=== PATIENT | male | born 1990 | race Caucasian/White ===

== ENCOUNTER → 2016-06-12 | Outpatient (CLI) | payer OTHER ==
[2016-06-12 11:28] LABS: CHCM 33.1; HCT 49.1 % (39.0-53.0); HDW 2.59; HGB 16.3 gm/dL (13.0-17.5); MCH 30.2 pg (25.0-35.0); MCHC 33.2 g/dL (31.0-37.0); Mean Platelet Volume 6.5; RDW 12.7 % (11.5-15.5); WBC 4.3 k/uL (3.8-10.6)
[2016-06-12 11:34] LABS: Anion Gap 12 mmol/L; Blood Urea Nitrogen 22 mg/dL (9-20); Calcium 9.3 mg/dL (8.4-10.2); Carbon Dioxide 22 mmol/L (22-30); Chloride 111 mmol/L (98-107); Glucose 85 mg/dL (74-99); Iron 73 ug/dL (49-181); Magnesium 1.9 mg/dL (1.6-2.3); Non-African American GFR(MDRD) >60 (>60 ml/min/1.73 sqM); Phosphorous 4.1 mg/dL (2.5-4.5); Potassium 4.5 mmol/L (3.5-5.1); Sodium 145 mmol/L (137-145); Uric Acid 5.1 mg/dL (3.5-8.5)
[2016-06-12 11:38] LABS: Cholesterol 130 mg/dL (<200); HDL Cholesterol 48 mg/dL (40-60); Triglycerides 69 mg/dL (<150)
[2016-06-12 11:43] LABS: Amorphous Sediment,Urine Rare /hpf; Appearance,Urine Cloudy (Clear); Bilirubin,Urine Negative (Negative); Glucose,Urine (UA) Negative (Negative); Ketones,Urine Negative (Negative); Leukocyte Esterase,Urine Small (Negative); Mucus,Urine Rare /hpf; Nitrite,Urine Negative (Negative); Particle Count 3761; Protein,Urine Negative (Negative); Specific Gravity,Urine 1.013 (1.001-1.035); Squamous Epithelial Cell,Urine <1 /hpf (0-4); UA Billing (MACRO vs. MICRO) MICRO; Urobilinogen,Urine <2.0 mg/dL (<2.0); WBC,Urine 8 /hpf (0-5)
[2016-06-12 11:43] LABS: Total Iron Binding Capacity 250 ug/dL (261-462)
== END | disposition home or self-care (01) ==
LOC: LABWHC1 10:19
PROVIDERS: ATTEND Nurse Practitioner Family
DX: Z00.01 Encounter for general adult medical examination with abnormal findings (principal); N17.9 Acute kidney failure, unspecified; D64.9 Anemia, unspecified; E21.3 Hyperparathyroidism, unspecified; E55.9 Vitamin D deficiency, unspecified; M10.9 Gout, unspecified; R80.9 Proteinuria, unspecified
CPT/HCPCS: 36415; 80048; 80061; 81001; 82043; 82306; 82728; 83540; 83550; 83735; 83970; 84100; 84550; 85027; 87491; 87591

== ENCOUNTER → 2016-06-17 | Outpatient (CLI) | payer OTHER ==
[2016-06-17 12:58] LABS: Hemoglobin A1C 5.4 % (4.2-6.1)
== END | disposition home or self-care (01) ==
LOC: LABWHC1 10:10
PROVIDERS: ATTEND Psychiatry & Neurology Psychiatry
DX: Z51.81 Encounter for therapeutic drug level monitoring (principal); Z79.899 Other long term (current) drug therapy
CPT/HCPCS: 36415; 83036

== ENCOUNTER → 2016-08-01 | Outpatient (CLI) | payer OTHER ==
--- NOTE | 2016-08-01 12:46 | US ---
EXAMINATION TYPE: US kidneys/renal and bladder DATE OF EXAM: 08/01/2016 12:34 PM COMPARISON: 01/10/2016 CLINICAL HISTORY: CKD Stage II N18.2. Chronic medical renal disease EXAM MEASUREMENTS: Right Kidney: 11.1 x 6.6 x 6.8 cm Left Kidney: not visualized Right Kidney: No hydronephrosis or nephrolithiasis seen Left Kidney: Obscured by overlying bowel/ gas Bladder: distended. Wall appears within normal limits for thickness. Bilateral Jets seen: no Unable to obtain images of left kidney due to bowel/gas in left renal fossa. Patient from [facility] ; chronic constipation, images sub optimal IMPRESSION: Left kidney is obscured. The right kidney demonstrates no acute abnormality.
== END | disposition home or self-care (01) ==
LOC: RADUSWWP 12:19
PROVIDERS: ATTEND Internal Medicine Nephrology
DX: N18.2 Chronic kidney disease, stage 2 (mild) (principal)
CPT/HCPCS: 76770

== ENCOUNTER → 2016-08-19 | Outpatient (CLI) | payer OTHER ==
[2016-08-21 08:07] LABS: Topiramate 12.7 ug/mL (2.0-20.0)
== END | disposition home or self-care (01) ==
LOC: LABWHC1 10:33
PROVIDERS: ATTEND Psychiatry & Neurology Neurology
DX: G40.209 Localization-related (focal) (partial) symptomatic epilepsy and epileptic syndromes with complex partial seizures, not intractable, without status epilepticus (principal)
CPT/HCPCS: 36415; 80201; 80203; 80339

== ENCOUNTER → 2017-03-19 | Outpatient (CLI) | payer OTHER ==
[2017-03-19 11:57] LABS: Appearance,Urine Clear (Clear); Bilirubin,Urine Negative (Negative); Glucose,Urine (UA) Negative (Negative); Ketones,Urine Negative (Negative); Leukocyte Esterase,Urine Negative (Negative); Nitrite,Urine Negative (Negative); PH, Urine 6.5 (5.0-8.0); Protein,Urine Negative (Negative); Specific Gravity,Urine 1.016 (1.001-1.035); UA Billing (MACRO vs. MICRO) CHEM; Urobilinogen,Urine <2.0 mg/dL (<2.0)
[2017-03-19 12:00] LABS: CH 30.4; CHCM 33.9; HCT 44.2 % (39.0-53.0); HDW 2.75; HGB 15.1 gm/dL (13.0-17.5); MCH 30.7 pg (25.0-35.0); MCHC 34.1 g/dL (31.0-37.0); MCV 90.2 fL (80.0-100.0); Mean Platelet Volume 6.6; RDW 12.5 % (11.5-15.5); WBC 3.7 k/uL (3.8-10.6)
[2017-03-19 12:29] LABS: Anion Gap 10 mmol/L; Blood Urea Nitrogen 21 mg/dL (9-20); Calcium 9.6 mg/dL (8.4-10.2); Carbon Dioxide 22 mmol/L (22-30); Chloride 112 mmol/L (98-107); Glucose 84 mg/dL (74-99); Magnesium 1.9 mg/dL (1.6-2.3); Non-African American GFR(MDRD) >60 (>60 ml/min/1.73 sqM); Phosphorus 3.4 mg/dL (2.5-4.5); Potassium 4.1 mmol/L (3.5-5.1); Sodium 144 mmol/L (137-145); Uric Acid 4.9 mg/dL (3.5-8.5)
[2017-03-19 18:42] LABS: Iron Saturation 37.3 (15.00-50.00)
[2017-03-25 07:32] LABS: Mis test requested (Blood) Lacosamide Level
== END | disposition home or self-care (01) ==
LOC: LABWHC1 10:50
PROVIDERS: ATTEND Nurse Practitioner Family
DX: N17.9 Acute kidney failure, unspecified (principal); R80.9 Proteinuria, unspecified; D64.9 Anemia, unspecified; E21.3 Hyperparathyroidism, unspecified; E55.9 Vitamin D deficiency, unspecified; M10.9 Gout, unspecified; G40.209 Localization-related (focal) (partial) symptomatic epilepsy and epileptic syndromes with complex partial seizures, not intractable, without status epilepticus
CPT/HCPCS: 36415; 80048; 80201; 80339; 81003; 82306; 82570; 82728; 83540; 83550; 83735; 83970; 84100; 84156; 84550; 85027

== ENCOUNTER → 2017-08-13 | Outpatient (CLI) | payer OTHER ==
[2017-08-13 12:24] LABS: Cholesterol 158 mg/dL (<200); HDL Cholesterol 48 mg/dL (40-60); LDL Cholesterol,Calculated 94 mg/dL (0-99); Triglycerides 80 mg/dL (<150)
== END | disposition home or self-care (01) ==
LOC: LABWHC1 10:49
PROVIDERS: ATTEND Psychiatry & Neurology Neurology
DX: Z00.01 Encounter for general adult medical examination with abnormal findings (principal); G40.209 Localization-related (focal) (partial) symptomatic epilepsy and epileptic syndromes with complex partial seizures, not intractable, without status epilepticus
CPT/HCPCS: 36415; 80061; 80201

== ENCOUNTER → 2018-04-05 | Outpatient (CLI) | payer OTHER ==
[2018-04-05 12:48] LABS: HCT 48.8 % (39.0-53.0); HGB 16.4 gm/dL (13.0-17.5); MCH 29.6 pg (25.0-35.0); MCHC 33.7 g/dL (31.0-37.0); Mean Platelet Volume 6.7; Platelet Count 185 k/uL (150-450); RBC 5.55 m/uL (4.30-5.90); RDW 12.9 % (11.5-15.5)
[2018-04-05 12:53] LABS: Appearance,Urine Clear (Clear); Bilirubin,Urine Negative (Negative); Blood,Urine Negative (Negative); Color,Urine Light Yellow; Glucose,Urine (UA) Negative (Negative); Ketones,Urine Negative (Negative); Leukocyte Esterase,Urine Negative (Negative); Nitrite,Urine Negative (Negative); Protein,Urine Negative (Negative); Specific Gravity,Urine 1.004 (1.001-1.035); Urobilinogen,Urine <2.0 mg/dL (<2.0)
[2018-04-05 19:11] LABS: Anion Gap 5.8 mmol/L (4.00-12.00); Calcium 9.5 mg/dL (8.7-10.3); Carbon Dioxide 24.2 mmol/L (21.6-31.8); Magnesium 1.8 mg/dL (1.5-2.4); Phosphorus 3.2 mg/dL (2.4-5.1); Potassium 3.9 mmol/L (3.5-5.5); Uric Acid 5.1 mg/dL (3.7-8.7)
[2018-04-05 19:15] LABS: Iron Saturation 39.63 (15.00-50.00)
[2018-04-05 19:23] LABS: Vitamin D 25 Hydroxy 33.4 ng/mL (30.0-100.0)
[2018-04-05 20:10] LABS: Total Protein,Urine Random <4.0 mg/dL (0.0-13.5)
== END | disposition home or self-care (01) ==
LOC: LABWHC1 11:17
PROVIDERS: ATTEND Nurse Practitioner Family
DX: N18.2 Chronic kidney disease, stage 2 (mild) (principal); D63.1 Anemia in chronic kidney disease; E61.1 Iron deficiency; E55.9 Vitamin D deficiency, unspecified; N39.0 Urinary tract infection, site not specified; N25.81 Secondary hyperparathyroidism of renal origin; M10.9 Gout, unspecified; G40.209 Localization-related (focal) (partial) symptomatic epilepsy and epileptic syndromes with complex partial seizures, not intractable, without status epilepticus
CPT/HCPCS: 36415; 80048; 81003; 82306; 82570; 82728; 83540; 83550; 83735; 83970; 84100; 84156; 84550; 85027

== ENCOUNTER → 2018-05-21 | Outpatient (CLI) | payer OTHER ==
[2018-05-21 16:27] LABS: ALT 20 U/L (10-49); AST 18 U/L (14-35); Albumin/Globulin Ratio 2.05 (1.20-2.10); Alkaline Phosphatase 94 U/L (41-126); Bilirubin, Conjugated <0.20 mg/dL (0.20-0.40); Cholesterol 144 mg/dL (0-200); Globulin 2.1 g/dL (1.6-3.3); Total Bilirubin 0.3 mg/dL (0.3-1.2); Total Protein 6.4 g/dL (6.2-8.2)
[2018-05-21 17:37] LABS: Hemoglobin A1C 5.6 % (4.0-6.0)
== END ==
LOC: LABWHC1 09:49
PROVIDERS: ATTEND Nurse Practitioner Family
DX: Z51.81 Encounter for therapeutic drug level monitoring (principal); Z79.899 Other long term (current) drug therapy
CPT/HCPCS: 36415; 80061; 80076; 83036

== ENCOUNTER → 2018-08-27 | Outpatient (CLI) | payer OTHER ==
--- NOTE | 2018-08-27 15:18 | US ---
EXAMINATION TYPE: US kidneys/renal and bladder DATE OF EXAM: 08/27/2018 COMPARISON: US 08/01/2016, US 01/10/2016 CLINICAL HISTORY: N18.2 CKD. EXAM MEASUREMENTS: Right Kidney: 10.3 x 5.5 x 5.5 cm Left Kidney: 9.2 x 4.3 x 5.1 cm Right Kidney: No hydronephrosis or masses seen Left Kidney: Limited visualization due overlying bowel gas. No hydronephrosis. Echogenic foci visuali zed lower pole measuring 0.8 cm. This has posterior shadowing suggestive for renal stone. Bladder: wnl Bilateral Jets seen: Yes IMPRESSION: 1. Nonobstructing inferior pole left renal calculus
== END | disposition home or self-care (01) ==
LOC: RADUSWWP 11:00
PROVIDERS: ATTEND Nurse Practitioner Family
DX: N20.0 Calculus of kidney (principal); N18.2 Chronic kidney disease, stage 2 (mild)
CPT/HCPCS: 76770

== ENCOUNTER → 2018-09-03 | Outpatient (CLI) | payer OTHER ==
[2018-09-06 08:52] LABS: Topiramate 13.6 ug/mL (2.0-20.0)
== END ==
LOC: LABWHC1 11:04
PROVIDERS: ATTEND Psychiatry & Neurology Neurology
DX: G40.209 Localization-related (focal) (partial) symptomatic epilepsy and epileptic syndromes with complex partial seizures, not intractable, without status epilepticus (principal)
CPT/HCPCS: 36415; 80201; 80339

== ENCOUNTER → 2019-03-24 | Outpatient (CLI) | payer OTHER ==
[2019-03-24 10:11] LABS: HCT 50.2 % (39.0-53.0); HGB 16.6 gm/dL (13.0-17.5); MCH 29.7 pg (25.0-35.0); MCV 89.8 fL (80.0-100.0); Mean Platelet Volume 6.4; Platelet Count 170 k/uL (150-450); RBC 5.58 m/uL (4.30-5.90); RDW 12.5 % (11.5-15.5); WBC 3.9 k/uL (3.8-10.6)
[2019-03-24 14:44] LABS: Appearance,Urine Clear (Clear); Bilirubin,Urine Negative (Negative); Blood,Urine Negative (Negative); Color,Urine Light Yellow; Glucose,Urine (UA) Negative (Negative); Ketones,Urine Negative (Negative); Leukocyte Esterase,Urine Small (Negative); Mucus,Urine Rare /hpf; Nitrite,Urine Negative (Negative); PH, Urine 6.5 (5.0-8.0); Protein,Urine Negative (Negative); RBC,Urine 1 /hpf (0-5); Specific Gravity,Urine 1.008 (1.001-1.035); Squamous Epithelial Cell,Urine <1 /hpf (0-4); Urobilinogen,Urine <2.0 mg/dL (<2.0); WBC,Urine 8 /hpf (0-5)
[2019-03-24 17:38] LABS: % Iron Saturation 35.1 (15.00-50.00); African American GFR (CKD) 94.8 (60.0-200.0); Anion Gap 7.4 mmol/L (4.00-12.00); BUN/Creat Ratio 15.83 Ratio (12.00-20.00); Calcium 9.4 mg/dL (8.7-10.3); Carbon Dioxide 21.6 mmol/L (21.6-31.8); Magnesium 1.9 mg/dL (1.5-2.4); Non-African American GFR(CKD) 81.8 (60.0-200.0); Uric Acid 4.7 mg/dL (3.7-8.7)
[2019-03-24 17:39] LABS: Phosphorus 3.1 mg/dL (2.4-5.1)
[2019-03-24 17:47] LABS: Ferritin 92.6 ng/mL (22.0-322.0)
[2019-03-24 22:01] LABS: Creatinine,Urine Random 44.2 mg/dL
[2019-03-24 22:02] LABS: Total Protein,Urine Random 6.2 mg/dL (0.0-13.5)
== END | disposition home or self-care (01) ==
LOC: LABWHC1 09:14
PROVIDERS: ATTEND Psychiatry & Neurology Neurology
DX: G40.209 Localization-related (focal) (partial) symptomatic epilepsy and epileptic syndromes with complex partial seizures, not intractable, without status epilepticus (principal); N18.2 Chronic kidney disease, stage 2 (mild); E61.1 Iron deficiency; E55.9 Vitamin D deficiency, unspecified; N39.0 Urinary tract infection, site not specified; R80.9 Proteinuria, unspecified; M10.9 Gout, unspecified
CPT/HCPCS: 82570; 80048; 80201; 84156; 82728; 83540; 83550; 83735; 84100; 84550; 85027; 81001; 82306; 83970; 36415; G0480; 80339

== ENCOUNTER → 2020-07-11 | Outpatient (CLI) | payer OTHER ==
[2020-07-12 09:03] LABS: Topiramate 14.9 ug/mL (2.0-20.0)
== END | disposition home or self-care (01) ==
LOC: LABWHC1 12:31
PROVIDERS: ATTEND Psychiatry & Neurology Neurology
DX: G40.209 Localization-related (focal) (partial) symptomatic epilepsy and epileptic syndromes with complex partial seizures, not intractable, without status epilepticus (principal)
CPT/HCPCS: 36415; 80201; 80235

== ENCOUNTER → 2020-11-28 | Outpatient (CLI) | payer OTHER ==
[2020-11-28 11:42] LABS: Basophils # (A) 0.03 X 10*3/uL (0.00-0.10); Basophils % (A) 0.6 %; Eosinophils # (A) 0.18 X 10*3/uL (0.04-0.35); Eosinophils % (A) 3.8 %; HGB 15.1 g/dL (13.0-17.0); Lymphocytes # (A) 2.05 X 10*3/uL (0.90-5.00); Lymphocytes % (A) 43.2 %; MCH 29.9 pg (27.0-32.0); MCHC 33.6 g/dL (32.0-37.0); MCV 89.1 fL (80.0-97.0); Mean Platelet Volume 9.4 fL (9.5-12.2); Monocytes % (A) 8.4 %; Neutrophils # (A) 2.08 X 10*3/uL (1.80-7.70); Neutrophils % (A) 43.8 %; Platelet Count 189 X 10*3/uL (140-440); RBC 5.05 X 10*6/uL (4.40-5.60); RDW 12.5 % (11.5-14.5); WBC 4.75 X 10*3/uL (4.50-10.00)
[2020-11-28 14:11] LABS: Hemoglobin A1C 5.2 % (4.0-6.0)
[2020-11-28 19:38] LABS: African American GFR (CKD) 94.1 (60.0-200.0); Albumin 4.3 g/dL (3.80-4.90); Albumin/Globulin Ratio 1.59 (1.60-3.17); Bilirubin, Conjugated 0.2 mg/dL (0.20-0.40); Bilirubin,Unconjugated 0.3 mg/dL; Chol/HDL Ratio 3.15; Globulin 2.7 g/dL (1.6-3.3); LDL Cholesterol,Calculated 86.2 mg/dL (0.0-131.0); Non-African American GFR(CKD) 81.2 (60.0-200.0); Total Bilirubin 0.5 mg/dL (0.2-1.2); VLDL Calculation 12.8 mg/dL (5.00-40.00)
[2020-11-29 08:11] LABS: Topiramate 19.5 ug/mL (2.0-20.0)
== END | disposition home or self-care (01) ==
LOC: LABWHC1 07:16
PROVIDERS: ATTEND Psychiatry & Neurology Neurology
DX: G40.209 Localization-related (focal) (partial) symptomatic epilepsy and epileptic syndromes with complex partial seizures, not intractable, without status epilepticus (principal); Z79.899 Other long term (current) drug therapy
CPT/HCPCS: 36415; 80061; 80076; 80201; 80235; 82565; 82947; 83036; 84439; 84443; 84520; 85025

== ENCOUNTER 2024-01-26 17:39 | Emergency (ER) | payer OTHER ==
[2024-01-26 17:56] VITALS: RESP 18
[2024-01-26] MEDS: GLUCAGON 1 MG/ML VIAL IM STA (18:22)
[2024-01-26] MEDS: ONDANSETRON 4 MG/2 ML VIAL IM STA (18:22)
[2024-01-26] MEDS: LIDOCAINE VISCOUS 2% 15 ML CUP PO ONE (18:23)
--- NOTE | 2024-01-26 18:29 | ED ---
General Adult HPI - General Chief complaint: ENT Stated complaint: Choking Time Seen by Provider: 01/26/24 17:42 Source: family, EMS Mode of arrival: EMS Limitations: language barrier - History of Present Illness Initial comments: Is a 33-year-old male the past medical history of autism presenting today for aspirated foreign body. He is limited by patient's ability to communicate. He is essentially nonverbal. Patient was eating bagels tonight at his custodial when his caregiver turned around and saw the patient turned blue, he had grabbed a bagel on the table next to him and swallowed it. Hemic maneuver was performed and patient vomited. He was able to breathe afterwards, he received a small drink of water which he then vomited back up. Since then the patient has been coughing persistently. Pt's mother states he is otherwise behaving normally. - Related Data Home Medications Medication Instructions Recorded Confirmed Loratadine [Claritin] 10 mg PO HS 10/15/14 04/11/16 fluvoxaMINE [Luvox] 150 mg PO BID 10/15/14 04/11/16 Lacosamide [Vimpat] 250 mg PO BID 10/27/14 04/11/16 diazePAM [Diastat] 10 mg RECTAL DIRECTED PRN 10/27/14 04/11/16 Ferrous Sulfate [Feosol] 325 mg PO DAILY 04/11/16 04/11/16 Glycerin Adult Suppository 1 tab RECTAL DAILY PRN 04/11/16 04/11/16 Lacosamide [Vimpat] 200 mg PO BID 04/11/16 04/11/16 OLANZapine [ZyPREXA] 10 mg PO BID 04/11/16 04/11/16 Topiramate [Trokendi Xr] 100 mg PO DAILY 04/11/16 04/11/16 Topiramate [Trokendi Xr] 200 mg PO DAILY 04/11/16 04/11/16 Tretinoin 1 applic TOPICAL HS 04/11/16 04/11/16 bisacodyL [Bisacodyl] 5 mg PO BID PRN 04/11/16 04/11/16 calcium polycarbophiL [Fibercon] 625 mg PO DAILY 04/11/16 04/11/16 Previous Rx's Medication Instructions Recorded Zonisamide [Zonegran] 300 mg PO BID #45 capsule 08/03/15 Allergies Allergy/AdvReac Type Severity Reaction Status Date / Time carbamazepine AdvReac Unknown Verified 01/26/24 17:58 chloral hydrate AdvReac Swelling Verified 01/26/24 17:58 divalproex sodium AdvReac Unknown Verified 01/26/24 17:58 [From Depakote] lamotrigine [From Lamictal] AdvReac Rash/Hives Verified 01/26/24 17:58 oxcarbazepine AdvReac Unknown Verified 01/26/24 17:58 [From Trileptal] Sulfa (Sulfonamide AdvReac Unknown Verified 01/26/24 17:58 Antibiotics) trimethoprim AdvReac Unknown Verified 01/26/24 17:58 Review of Systems ROS Statement: Those systems with pertinent positive or pertinent negative responses have been documented in the HPI. ROS Other: All systems not noted in ROS Statement are negative. Limitations: ROS unobtainable due to patients medical condition Past Medical History Past Medical History: Seizure Disorder Additional Past Medical History / Comment(s): AUTISM, MODERATE MENTAL RETARDATION History of Any Multi-Drug Resistant Organisms: None Reported Past Surgical History: No Surgical Hx Reported Past Psychological History: No Psychological Hx Reported Smoking Status: Never smoker Past Alcohol Use History: None Reported Past Drug Use History: None Reported General Exam - General Exam Comments Initial Comments: PE: CONSTITUTIONAL: No apparent distress, well appearing SKIN: Warm, dry, no jaundice, hives or petechiae EYES: Pupils are equally round, extraocular movements intact without nystagmus, clear conjunctiva, non-icteric sclera HENT: Normocephalic, atraumatic, moist mucus membranes, oropharynx clear without exudates, exam limited by patient's ability to cooperate, no foreign bodies noted in the posterior oropharynx NECK: , Full range of motion, normal appearance, masses or tenderness palpation PULMONARY: Clear to auscultation without wheezes, rhonchi, or rales, normal ex cursion, no accessory muscle use and no stridor CARDIOVASCULAR: Regular rate, rhythm, normal S1 and S2. No appreciated murmurs, rubs or gallops. Extremities are pink and well-perfused GASTROINTESTINAL: Soft, non-tender, non-distended, no palpable masses, no rebound or guarding. No hepatosplenomegaly MUSCULOSKELETAL: Extremities have no gross deformity, no edema, redness, or swelling. NEUROLOGIC: At baseline, nonverbal, alert, cooperative, follows commands, moves all extremities x 4 without motor or sensory deficit PSYCHIATRIC:_Calm and cooperative, thought process is difficult to assess due to nonverbal status however patient is able to follow commands Limitations: language barrier Course Vital Signs 01/26/24 17:42 Temperature 98.7 F Pulse Rate 99 Respiratory 18 Rate Blood Pressure 138/79 O2 Sat by Pulse 98 Oximetry Medical Decision Making - Medical Decision Making Was pt. sent in by a medical professional or institution (, PA, SOFTWARE ADMINISTRATOR, urgent care, hospital, or [facility]...) When possible be specific @ -No Did you speak to anyone other than the patient for history (EMS, parent, family, police, friend...)? What history was obtained from this source @ -Yes, please see below Did you review nursing and triage notes (agree or disagree)? Why? @ -I reviewed and agree with nursing and triage notes Were old charts reviewed (outside hosp., previous admission, EMS record, old EKG, old radiological studies, urgent care reports/EKG's, [facility] records)? Report findings @ -No old charts were reviewed Differential Diagnosis (chest pain, altered mental status, abdominal pain women, abdominal pain men, vaginal bleeding, weakness, fever, dyspnea, syncope, headache, dizziness, GI bleed, back pain, seizure, CVA, palpatations, mental health, musculoskeletal)? @ -Diagnosed remains broad however top considerations include coughing secondary to oropharygneal irritation after vomiting episode, esophageal foreign body, aspirated foreign body, reflex, this is not all inclusive list EKG interpreted by me (3pts min.). @ -As above X-rays interpreted by me (1pt min.). @ -Appears to have good and equal air entry both lungs, no pneumthorax, no FB, no consolidations CT interpreted by me (1pt min.). @ -None done U/S interpreted by me (1pt. min.). @ -None done What testing was considered but not performed or refused? (CT, X-rays, U/S, labs)? Why? @ -None What meds were considered but not given or refused? Why? @ -None Did you discuss the management of the patient with other professionals (professionals i.e. , [facility]ZAN[employer], SOFTWARE ADMINISTRATOR, lab, RT, psych nurse, social service liaison, career consultant, teacher, senior grants officer, telephonic nurse case manager)? Give summary @ -No Was smoking cessation discussed for >3mins.? @ -No Was critical care preformed (if so, how long)? @ -No Were there social determinants of health that impacted care today? How? (Homelessness, low income, unemployed, alcoholism, drug addiction, transportation, low edu. Level, literacy, decrease access to med. care, detention, rehab)? @ -No Was there de-escalation of care discussed even if they declined (Discuss DNR or withdrawal of care, Hospice)? @ -No What co-morbidities impacted this encounter? (DM, HTN, Smoking, COPD, CAD, Cancer, CVA, ARF, Chemo, Hep., AIDS, mental health diagnosis, sleep apnea, morbid obesity)? @ -Autism , seizure disorder Was patient admitted / discharged? Hospital course, mention meds given and route, prescriptions, significant lab abnormalities, going to OR and other pertinent info. @ -Hospital course patient is a 33-year-old male past medical history of autism, residing in a custodial presenting for choking episode and persistent coughing afterwards. On my assessment patient is well-appearing in no acute distress. History is limited as patient is essentially nonverbal. History obtained from patient's caregiver and mother. Physical exam shows well-appearing 31 show male in no acute distress. Extremities are pink and well-perfused, respirations are unlabored, he does have a frequent dry cough however lungs are clear to auscultation bilaterally though of note exam is limited by patient's ability to cooperate with exam. Abdomen is soft and nontender. He is not having episodes of emesis or choking episodes. Will plan for chest x-ray to ensure no evidence of obstructive bronchus suspicion for this. Glucagon, Zofran emesis lidocaine administered. Chest x-ray shows no acute process. On my reassessment patient having episodes of coughing. He is able to tolerate p.o. juice. Pulse ox on room air is 97% with unlabored respirations. Discussed with caregiver plan for discharge home. We discussed signs symptoms warranting return to the ER especially to monitor for signs of aspiration pneumonia such as fever, cough productive of sputum. Patient's caregiver and mother comfortable and agreeable with plan for discharge. In my medical judgment there is currently no evidence of an immediate life- threatening or surgical condition. Discharge is therefore indicated at this time. Discharge treatment instructions, follow up instructions, and appropriate emergency department return precautions were discussed with the patient and/or medical decision maker. Patient and/or medical decision maker expressed understanding of and agreed with the treatment plan, follow up instructions, and emergency department return precaution. All patient's and/or medical decision maker's questions were answered. Undiagnosed new problem with uncertain prognosis? @ -No Drug Therapy requiring intensive monitoring for toxicity (Heparin, Nitro, Insulin, Cardizem)? @ -No Were any procedures done? @ -No Diagnosis/symptom? @ -Choking episode Acute, or Chronic, or Acute on Chronic? @ -Acute Uncomplicated (without systemic symptoms) or Complicated (systemic symptoms)? @Uncomplicated Side effects of treatment? @ -No Exacerbation, Progression, or Severe Exacerbation? @ -No Poses a threat to life or bodily function? How? (Chest pain, [place], [place], pneumonia, PE, COPD, DKA, ARF, appy, cholecystitis, CVA, Diverticulitis, Homicidal, Suicidal, threat to staff... and all critical care pts) @ -unlikely, initially, yes, however after patient cleared piece of food that he choked on, on arrival here, patient is not hypoxic and he is able to tolerate p.o. intake. Disposition Clinical Impression: Choking episode Disposition: HOME SELF-CARE Condition: Good Instructions (If sedation given, give patient instructions): Performing the Heimlich Maneuver (ED), Esophageal Foreign Body (ED), Food Impaction (ED) Additional Instructions: Every disease is a spectrum and a small chance still exists that a serious condition could develop, for this reason, please monitor the patient closely for new, changing or worsening symptoms, development of a persistent cough, productive of sputum or blood, difficulty in breathing, fever, inability to tolerate/keep down fluids or his medications, inability to follow up with outpatient providers as instructed and should the patient experience these symptoms or should you have any further concerns for his wellbeing please return to the ED or call 911 immediately. PLEASE call the patient's primary care physician as soon as possible to arrange / discuss plan for followup appointment. Appointment in the next 1-3 days is strongly encouraged if possible. PLEASE let us know here before you leave if there is anything further we can do to be of any assistance. Take care and feel Better! Is patient prescribed a controlled substance at d/c from ED?: No Referrals: Senthil Malin [Primary Care Provider] - 1-2 days
--- NOTE | 2024-01-26 19:26 | XR ---
EXAMINATION TYPE: XR chest 2V DATE OF EXAM: 01/26/2024 COMPARISON: 10/11/2015 INDICATION: Choked on bagel, still coughing TECHNIQUE: Single frontal view of the chest is obtained. FINDINGS: The heart size is normal. The pulmonary vasculature is normal. The lungs are clear. Azygos lobe is present, normal variant. Tracheobronchial tree as visualized appears normal. IMPRESSION: 1. No acute pulmonary process radiographically apparent.. [facility], , 01/26/2024 7:24 PM
[2024-01-26 19:46] VITALS: BP 118/99; PULSE 87; TEMP 97.8
== END 2024-01-26 19:54 | disposition home or self-care (01) ==
LOC: EC 17:39
CPT/HCPCS: 71046; 96372; 99283